=== PATIENT | male | born 1990 | race Caucasian/White ===

== ENCOUNTER 2017-08-16 12:22 | Emergency (ER) | payer BC, SELFPAY ==
[2017-08-16 12:25] VITALS: BP 133/75; PULSE 82; RESP 16; TEMP 36.4; O2SAT 99; BMI 25.2
[2017-08-16 12:35] VITALS: BP 129/69; PULSE 76; RESP 16; O2SAT 99
[2017-08-16] MEDS: Dicyclomine 20 MG/2 ML Vial IM (13:09)
[2017-08-16] MEDS: 0.9% Normal Saline 1,000 ML 1000 ML IV ×2 (13:09→14:59)
[2017-08-16 13:23] LABS: ALB/GLOB Ratio 1.3 RATIO (0.9-2.4); AST(SGOT) 29 U/L (15-37); Absolute Lymphocyte Count 0.29 X10^3/ul (0.83-4.51); Absolute Neutrophil Count 8.1 X10^3/uL (2.0-7.7); Alanine Aminotransfer ALT/SGPT 42 U/L (16-61); Albumin, Serum 3.9 g/dL (3.2-5.0); Alkaline Phosphatase 78 U/L (45-117); Anion Gap 9 (5-15); BUN 22 mg/dL (7-18); BUN/Creat Ratio 19.3 RATIO (10-20); Basophil# 0.01 X10^3/uL; Basophil% 0.1 % (0-1); Calcium,Total 8.3 mg/dL (8.5-10.1); Chloride 104 mmol/L (98-107); Creatinine, Serum 1.14 mg/dL (0.70-1.30); EST Glomerular Filtration Rate 81 mL/min (>60); Eosinophil# 0.01 X10^3/uL; Eosinophils% 0.1 % (0-5); Est Glom Filt Rate - Afr Amer 98 mL/min (>60); Estimated Creatinine Clearance 105.89 ml/min; Globulin 2.9 g/dL (2.2-4.2); Glucose 113 mg/dL (74-106); Hematocrit 42.1 % (40-54); Hemoglobin 14.4 g/dl (13.0-16.5); Lipase 132 U/L (73-393); Lymphocyte # 0.29 X10^3/ul (4.0); Lymphocyte % 3.3 % (19-41); Mean Corp Hgb Conc 34.2 g/gl (32-36); Mean Corpuscular Hgb 31.4 pg (27.0-32.0); Mean Corpuscular Volume 91.9 fL (80-94); Mean Platelet Vol. 9.5 fl (6.2-12.0); Monocyte# 0.55 X10^3/uL; Monocyte% 6.2 % (0-10); Neutrophil # 8.05 X10^3/uL (2.7-7.7); Neutrophil % 90.2 % (47-70); Platelet Count 208 K/mm3 (150-450); Potassium 3.5 mmol/L (3.5-5.1); Protein, Total 6.8 g/dL (6.4-8.2); RBC Distribution Width CV 12.4 % (11.6-14.6); RBC Distribution Width SD 41.7 fl (35.1-43.9); Red Blood Count 4.58 M/mm3 (4.6-6.2); Sodium Level 138 mmol/L (136-145); White Blood Count 8.9 K/mm3 (4.4-11.0)
[2017-08-16 13:24] LABS: Differential Indicated SCAN CRITERIA MET; POSITIVE COUNT NO; POSITIVE DIFFERENTIAL YES; POSITIVE MORPHOLOGY NO
[2017-08-16 13:49] LABS: Platelet Estimate ADEQUATE (ADEQ)
[2017-08-16 13:50] LABS: Red Cell Morphology NORM C+C NORMAL (NORM C&C)
--- NOTE | 2017-08-16 13:59 | ED.DCSUM_ITS ---
- ER Visit Summary Date of Service: 08/16/17 Chief Complaint: Abdominal pain History of Present Illness: The patient is a 27 M who presents with abdominal pain. He states it began late last night or early this morning. He complains of diffuse aching and cramping abdominal pain. He had multiple episodes of nonbloody nonbilious emesis about every 30 minutes but has not actually vomited in the last 2 hours. He is also had a few episodes of loose stools. He reports some mild burning with urination. Physical Examination: Afebrile vitals are normal Moist mucous membranes Heart regular rate and rhythm Lungs are clear Abdomen soft nondistended with some diffuse nonfocal tenderness no guarding no rebound Test Results: Laboratory studies notable for BUN of 22. Normal hepatic function and lipase no leukocytosis. Urinalysis unremarkable. Emergency Department Course and Treatment: Patient was treated with IV fluids and Phenergan. He has had no further vomiting but complained of some ongoing nausea so was given IV Zofran as well. He was given intramuscular Bentyl for abdominal cramping. His laboratory studies and urinalysis are unremarkable except for some mild dehydration. He has a benign physical exam. I do not believe this is due to any acute surgical pathology. Given vomiting and diarrhea this is likely related to gastroenteritis. He was instructed on supportive care. He was given a prescription for Zofran ODT's. He understands to return for new or worsening symptoms and was instructed on specific signs and symptoms to monitor for. He was discharged. Treatment Plan: [] Disposition: Discharge Impression: Gastroenteritis This note was generated with [employer] dictation software. It may contain incorrect words, spelling, and punctuation that were not noted in review of the chart prior to signing ED Disposition - Plan for ED Patient: Chief Complaint: Abd Pain Referrals: Care Physician,No Primary [Primary Care Provider] -
[2017-08-16] MEDS: Ondansetron 4 MG/2 ML Vial IV (14:12)
[2017-08-16 14:42] LABS: Bacteria 0 SEEN /hpf (None Seen); Mucous, Urine 0 SEEN /hpf (<or=2+); Squamous Epithelial Cells - UA 0 SEEN /hpf (0-5); White Blood Cells 0 SEEN /hpf (0-5)
[2017-08-16 14:46] LABS: Color, Urine Yellow (Yellow); Glucose, Dipstick Normal (Normal); Ketone-Dipstick 5 mg/dl (Negative); Leukocyte Esterase-Dipstick 25 /ul (Negative); Nitrite-Dipstick Negative (Negative); Occult Blood-Urine Negative /ul (Negative); Protein-Dipstick 15 mg/dl (Negative); Specific Gravity, Urine 1.015 (1.002-1.030); Urine Bilirubin Dipstick Negative (Negative); Urine Clarity Clear (Clear); Urine Urobilinogen Normal (Normal)
[2017-08-16 14:53] LABS: Red Blood Cells-Urine 0-5 SEEN /hpf (0-5)
--- NOTE | 2017-08-16 15:11 | ED.DEP ---
ED Disposition - Plan for ED Patient: Chief Complaint: Abd Pain Instructions: ED Gastroenteritis Viral Prescriptions: Ondansetron [Zofran Odt] 4 mg PO Q8H PRN PRN #10 tab PRN Reason: Nausea Referrals: Care Physician,No Primary [Primary Care Provider] -
[2017-08-16 15:39] VITALS: BP 124/77; PULSE 68; RESP 15; O2SAT 100
== END 2017-08-16 15:40 | disposition home or self-care (01) ==
PROVIDERS: Emergency Provider Emergency Medicine
DX: K52.9 Noninfective gastroenteritis and colitis, unspecified (principal); R30.0 Dysuria; F32.9 Major depressive disorder, single episode, unspecified; F41.9 Anxiety disorder, unspecified; Z79.899 Other long term (current) drug therapy
CPT/HCPCS: 80053; 81001; 83690; 85025; 96361; 96372; 96374; 96375; 99283; J7030; A4216; J2405